=== PATIENT | female | born 2000 | race Caucasian/White ===

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

== ENCOUNTER → 2023-07-25 | Outpatient (REF) | payer BC, OTHER ==
[~2023-07-25] MED LIST changes: +ALBU6.7H6 INH; +IBUP200T46 PO; -PROV108A INH
== END ==
LOC: M LAB REF 16:16
PROVIDERS: ATTEND Student in an Organized Health Care Education/Training Program
DX: R10.30 Lower abdominal pain, unspecified (principal)

== ENCOUNTER → 2025-01-22 | Outpatient (REF) | payer BC, OTHER | LOC: M LAB REF 11:56 | PROVIDERS: ATTEND Student in an Organized Health Care Education/Training Program | DX: R30.0 Dysuria (principal) ==